=== PATIENT | male | born 1980 | race Two or more races ===

== ENCOUNTER 2017-04-24 15:24 | Emergency (ER) | payer MEDICAID, OTHER ==
[~2017-04-24] VITALS: Ht 167.6 cm; Wt 84.8 kg
[2017-04-24 19:46] LABS: Basophils # (auto) 0.1 uL; Basophils % (auto) 0.6 % (0.0-2.0); Eosinophils # (auto) 0.1 uL; Eosinophils % (auto) 0.6 % (0.0-7.0); Hematocrit 46.2 % (41.0-53.0); Hemoglobin 15.8 g/dL (13.5-17.5); Lymphocytes # (auto) 2.9 uL; Lymphocytes % (auto) 28.8 % (10.0-50.0); Mean Corpuscular Hemoglobin 31.7 pg (28.0-32.0); Mean Corpuscular Hgb Conc. 34.1 g/dL (32.0-36.0); Mean Platelet Volume 7.5 fL (6.9-10.8); Monocytes # (auto) 0.8 uL; Monocytes % (auto) 8.4 % (0.0-12.0); Neutrophils # (auto) 6.1 uL; Neutrophils % (auto) 61.6 % (37.0-80.0); Platelet Count (auto) 274 10^3/uL (140-450); Red Cell Distribution Width 13.3 % (11.8-14.3)
[2017-04-24 20:06] LABS: Albumin 4.3 g/dL (3.4-5.0); BUN/Creatinine Ratio 13.3; Bilirubin, Total 0.3 mg/dL (0.2-1.0); Calcium 8.9 mg/dL (8.5-10.1); Potassium 3.8 mmol/L (3.5-5.1); Total Protein 9.2 g/dL (6.4-8.2)
[2017-04-24 21:46] LABS: Urine Bilirubin Negative (Negative); Urine Blood 2+ /uL (Negative); Urine Color Yellow (Yellow); Urine Glucose Normal (Normal); Urine Ketone Negative (Negative); Urine Nitrite Negative (Negative); Urine RBC 13 /hpf (0 - 3); Urine Urobilinogen Normal (Negative); Urine pH 6.5 (5.0-8.0)
[2017-04-24 22:02] VITALS: BP 124/74
== END 2017-04-24 22:36 | disposition home or self-care (01) ==
LOC: ER 15:46
DX: R06.02 Shortness of breath (principal); N28.1 Cyst of kidney, acquired; R31.9 Hematuria, unspecified; Z87.891 Personal history of nicotine dependence
CPT/HCPCS: 36415; 71020; 74176; 80053; 81001; 85025

== ENCOUNTER 2017-05-08 11:45 | Emergency (ER) | payer SELFPAY ==
[~2017-05-08] VITALS: Ht 170.2 cm; Wt 81.6 kg
[2017-05-08 11:52] VITALS: BP 146/80
[2017-05-08] MEDS ORDERED: cefTRIAXone SOD 1,000 MG VL IM ONE (14:00)
[2017-05-08] MEDS ORDERED: IPRATROPIUM BROM 0.5 MG/2.5ML INH SOL NEB ONE (14:00)
[2017-05-08] MEDS ORDERED: methylPREDNISolone SOD SUCC 125 MG/2 ML VL IM ONE (14:00)
[2017-05-08] MEDS ORDERED: ALBUTEROL SULF 2.5 MG/0.5ML(0.5%) NEB SOLN NEB ONE (14:00)
== END 2017-05-08 14:39 | disposition home or self-care (01) ==
LOC: ER 11:45
DX: J03.90 Acute tonsillitis, unspecified (principal); J98.01 Acute bronchospasm
CPT/HCPCS: 94640; 96372; 99284; J0696; J2930